=== PATIENT | female | born 1960 | race Caucasian/White ===

== ENCOUNTER → 2017-12-20 | Outpatient (CLI) | payer BC ==
--- NOTE | 2017-12-27 12:14 | MM ---
Reason for exam: screening (asymptomatic). Last mammogram was performed 4 years and 4 months ago. History: Family history of breast cancer in 2 aunts. Took hormonal contraceptives for 4 years. Physical Findings: A clinical breast exam by your physician is recommended on an annual basis and results should be correlated with mammographic findings. MG Screening Mammo w CAD Bilateral CC and MLO view(s) were taken. Prior study comparison: June 30, 2008, bilateral mammo digital work up. June 12, 2008, bilateral digital screening mammogram. The breast tissue is heterogeneously dense. This may lower the sensitivity of mammography. No significant changes when compared with prior studies. ASSESSMENT: Benign, BI-RAD 2 RECOMMENDATION: Routine screening mammogram of both breasts in 1 year.
== END | disposition home or self-care (01) ==
LOC: RADMAMWWP 15:29
PROVIDERS: ATTEND Family Medicine
DX: Z12.31 Encounter for screening mammogram for malignant neoplasm of breast (principal)
CPT/HCPCS: 77067

== ENCOUNTER 2021-04-24 15:26 | Inpatient (IN) | payer BC ==
[2021-04-24] MEDS ORDERED: KETOROLAC 15 MG/ML 1 ML VIAL IM STA (17:58)
--- NOTE | 2021-04-24 18:42 | XR ---
EXAMINATION TYPE: XR Hip RT and AP Pelvis DATE OF EXAM: 04/24/2021 COMPARISON: NONE HISTORY: Fall. Hip pain TECHNIQUE: 3 views FINDINGS: There is an acute impacted subcapital fracture right femur. There is no dislocation. Pelvic ring is intact. Proximal left femur is intact. IMPRESSION: Acute subcapital fracture right femur.
[2021-04-24] MEDS ORDERED: NALOXONE 0.4 MG/ML 1 ML VIAL IV PRN (18:57)
[2021-04-24] MEDS ORDERED: MORPHINE SULFATE 4 MG/ML SYRINGE IV PRN (18:57)
[2021-04-24] MEDS ORDERED: ONDANSETRON 4 MG/2 ML VIAL IVP PRN (18:57)
--- NOTE | 2021-04-24 18:57 | ED ---
Fall HPI - General Chief Complaint: Fall Stated Complaint: right sided pain from fall Time Seen by Provider: 04/24/21 17:46 Source: patient Mode of arrival: ambulatory - History of Present Illness Initial Comments: 60-year-old female presents to emergency Department with a chief complaint fall. States the incident occurred yesterday while she had a trip and fall from a cement step and fell on the right side of her body. She denies any head injuries but reports pain in the right hip. States the pain is exacerbated with flexion, extension, abduction and adduction of the right hip. However, she denies any paresthesias but does report a limited range of motion with the previously mentioned movements. She denies any ecchymosis, erythema or swelling over the right hip. She reports taking [id number] analgesics with no significant improvement in symptoms. - Related Data Allergies Allergy/AdvReac Type Severity Reaction Status Date / Time No Known Allergies Allergy Verified 04/24/21 16:09 Review of Systems ROS Statement: Those systems with pertinent positive or pertinent negative responses have been documented in the HPI. ROS Other: All systems not noted in ROS Statement are negative. Past Medical History Past Medical History: No Reported History History of Any Multi-Drug Resistant Organisms: None Reported Past Surgical History: Hysterectomy Past Psychological History: Anxiety, Depression Smoking Status: Never smoker Past Alcohol Use History: None Reported Past Drug Use History: None Reported General Exam Limitations: no limitations General appearance: alert, in no apparent distress Head exam: Present: atraumatic, normocephalic, normal inspection Eye exam: Present: normal appearance, PERRL, EOMI Pupils: Present: normal accommodation ENT exam: Present: normal exam, normal oropharynx, mucous membranes moist Neck exam: Present: normal inspection, full ROM. Absent: tenderness, lymphadenopathy Respiratory exam: Present: normal lung sounds bilaterally. Absent: respiratory distress Cardiovascular Exam: Present: regular rate, normal rhythm, normal heart sounds. Absent: systolic murmur Extremities exam: Present: normal inspection, full ROM, tenderness (Tenderness over the right hip), normal capillary refill, other (Sensation intact in the right leg. Palpable DP and PT bilaterally). Absent: pedal edema, joint swelling, calf tenderness Back exam: Present: normal inspection, full ROM Neurological exam: Present: alert, oriented X3 Psychiatric exam: Present: normal affect, normal mood Skin exam: Present: warm, dry, intact, normal color Course Vital Signs 04/24/21 16:06 Temperature 98.2 F Pulse Rate 63 Respiratory 18 Rate Blood Pressure 142/72 O2 Sat by Pulse 98 Oximetry Medical Decision Making - Medical Decision Making 60-year-old female presents to emergency department for a fall and right hip pain. Physical examination, she is neurovascularly intact with tenderness over the right hip as well as limited range of motion. Patient requested nonnarcotic analgesia and was given Toradol. X-ray of the pelvis and hip reveals an acute subcapital fracture right femur. I spoke with who recommended CT imaging. Nothing by mouth. Recommended internal medicine consult. Pain control. She will be admitted for further medical management. Case discussed with Dr. Fitzgerald. Disposition Clinical Impression: Fall, Closed right hip fracture Disposition: ADMITTED IP TO THIS HOSP Condition: Good Is patient prescribed a controlled substance at d/c from ED?: No Referrals: Ricky Goetz DO [Primary Care Provider] - 1-2 days Time of Disposition: 18:56
[2021-04-24] MEDS: SODIUM CHLORIDE 0.9% 1,000 ML IV SCH (20:05)
[2021-04-24] MEDS: HYDROmorphone 0.5 MG/0.5 ML SYRINGE IVP PRN (20:05)
--- NOTE | 2021-04-24 23:29 | CT ---
EXAMINATION TYPE: CT hip RT wo con DATE OF EXAM: 04/24/2021 COMPARISON: None HISTORY: right hip pain CT DLP: 555.5 mGycm Automated exposure control for dose reduction was used. Images obtained from the mid ileum to the mid shaft of the femur with no contrast. There is a slightly impacted subcapital fracture of the right femur. There is no dislocation. Acetabu lum is intact. There is no evidence of a pathologic fluid collection. There is mild stranding in the subcutaneous fat over the lateral proximal femur that could be some bruising. There is no evidence of a soft tissue mass. IMPRESSION: Mildly impacted nondisplaced subcapital fracture of the right femur.
[2021-04-25 07:15] LABS: Basophils # (A) 0.1 k/uL (0-0.2); Basophils % (A) 1 %; Eosinophils # (A) 0.8 k/uL (0-0.7); Eosinophils % (A) 9 %; HCT 36.5 % (34.0-46.0); HGB 12.1 gm/dL (11.4-16.0); Lymphocytes # (A) 1.4 k/uL (1.0-4.8); Lymphocytes % (A) 18 %; MCH 32.5 pg (25.0-35.0); MCHC 33.2 g/dL (31.0-37.0); MCV 97.7 fL (80.0-100.0); Mean Platelet Volume 7.2; Monocytes # (A) 0.4 k/uL (0-1.0); Monocytes % (A) 5 %; Neutrophils # (A) 5.3 k/uL (1.3-7.7); Neutrophils % (A) 66 %; Platelet Count 273 k/uL (150-450); RBC 3.73 m/uL (3.80-5.40); RDW 11.8 % (11.5-15.5); WBC 8.1 k/uL (3.8-10.6)
[2021-04-25 07:24] LABS: African American GFR (CKD) >90 (>60 ml/min/1.73 sqM); Anion Gap 4 mmol/L; Blood Urea Nitrogen 14 mg/dL (7-17); Calcium 9.3 mg/dL (8.4-10.2); Carbon Dioxide 31 mmol/L (22-30); Chloride 104 mmol/L (98-107); Glucose 93 mg/dL (74-99); Non-African American GFR(CKD) >90 (>60 ml/min/1.73 sqM); Potassium 4.6 mmol/L (3.5-5.1); Sodium 139 mmol/L (137-145)
--- NOTE | 2021-04-25 07:29 | XR ---
EXAMINATION TYPE: XR chest 1V portable DATE OF EXAM: 04/25/2021 CLINICAL HISTORY: Presurgical study. TECHNIQUE: Single AP portable upright view of the chest is obtained. COMPARISON: None. FINDINGS: Mild chronic parenchymal changes bilaterally without suspicious focal airspace opacity, pl eural effusion, or pneumothorax seen bilaterally. Cardiac silhouette size is within normal limits. Os seous structures are somewhat demineralized. Overlying bra strap noted. IMPRESSION: No acute cardiopulmonary process.
[2021-04-25 07:30] LABS: INR 0.9 (<1.2); Partial Thromboplastin Time 23.2 sec (22.0-30.0)
[2021-04-25] MEDS: HYDROmorphone 0.5 MG/0.5 ML SYRINGE IVP PRN ×2 (10:52→16:37)
[2021-04-25] MEDS: CITALOPRAM HYDROBROMIDE 20 MG TAB PO SCH (10:54)
[2021-04-25] MEDS: ENOXAPARIN 40 MG/0.4 ML SYRINGE SQ SCH (10:54)
--- NOTE | 2021-04-25 11:11 | P.HPOR ---
History of Present Illness H&P Date: 04/25/21 This patient is a 60- year old female who is otherwise healthy that presented to [facility] on 04/24/21 with complaints of right hip pain following a fall. Patient states she was visiting [place] on Sunday and tripped while [place] the light[place] over uneven sidewalk. Patient states she fell directly onto the right hip. She experienced immediate pain in the hip. Patient notes she was able to get up and walk back to the car. She continued to experience pain in the hip after arrival home, therefore she presented to the ER. X-rays and CT scan in the ER revealed a non-displaced femoral neck fracture. She was admitted under the care of Dr. Stevenson with a consult placed to inter [facility] medicine for surgical clearance. Patient is seen and examined bedside in the ER with Dr. Stevenson. She complains of isolated right hip pain. She denies additional injuries or complaints at this time. She denies numbness or tingling of the right lower extremity. She states she does not smoke. She has no prior medical history. Patient denies chest pain, shortness of breath, nausea, vomiting. No complaints or concerns at this time. Vital signs stable. Past Medical History Past Medical History: No Reported History History of Any Multi-Drug Resistant Organisms: None Reported Past Surgical History: Hysterectomy Past Psychological History: Anxiety, Depression Smoking Status: Never smoker Past Alcohol Use History: None Reported Past Drug Use History: None Reported Medications and Allergies Home Medications Medication Instructions Recorded Confirmed Type Acetaminophen [Tylenol] 1,000 mg PO Q4-6H PRN 04/24/21 04/24/21 History Citalopram Hydrobromide [CeleXA] 40 mg PO DAILY 04/24/21 04/24/21 History Naproxen Sodium [Aleve] 440 mg PO ONCE PRN 04/24/21 04/24/21 History Allergies Allergy/AdvReac Type Severity Reaction Status Date / Time No Known Allergies Allergy Verified 04/24/21 20:12 Physical Examination On examination, patient is sitting in bed in no apparent distress. She is alert and orientated x3. Her head appears normocephalic and atraumatic. Her breathing appears non-labored. On inspection of her bilateral upper extremities, no obvious deformities or signs of trauma. On inspection of her left lower extremity, no obvious deformities or signs of trauma. On inspection of right hip, there is a small area of ecchymosis of the posterior hip. No open wounds or lacerations. ROM is not tested at this time. No pain on palpation of the knee, lower leg, ankle, foot. Motor and sensory function intact right lower extremity. Calf is soft and nontender. Dorsalis pedis pulse +2. Right lower extremity is warm and well perfused. Results - Labs Labs: Abnormal Lab Results - Last 24 Hours (Table) 04/25/21 04/25/21 Range/Units 06:49 06:49 RBC 3.73 L (3.80-5.40) m/uL Eosinophils # 0.8 H (0-0.7) k/uL Carbon Dioxide 31 H (22-30) mmol/L H & H 04/25/21 Range/Units 06:49 Hgb 12.1 (11.4-16.0) gm/dL Hct 36.5 (34.0-46.0) % Coagulation 04/25/21 Range/Units 06:49 INR 0.9 (<1.2) Result Diagrams: 04/25/21 06:49 04/25/21 06:49 Assessment and Plan Assessment: CT scan right hip 04/25/21: Right non-displaced impacted subcapital femoral neck fracture. Plan: - Clinical and imaging findings were discussed with the patient and Dr. Stevenson. Operative treatments were discussed, and in situ screw fixation is recommended for the right impacted subcapital femoral neck fracture. Surgical risks were discussed, patient provides verbal consent for surgery. - We will plan for surgery this afternoon, pending medical clearance. - Non-weight bearing right lower extremity. Pain management as needed. - NPO diet. - Internal medicine has been consulted for pre-operative medical evaluation.
--- NOTE | 2021-04-25 11:34 | P.PN ---
Progress Note - Text Progress Note Date: 04/25/21 I agree with the H&P by Ulisses Castañeda PA-C. I also examined the patient and reviewed her imaging. I had a long conversation with Liseth and her family who were at bedside. She fell on Sunday and was able to walk and put weight on her hip after her fall. She came in to the ED yesterday due to increased pain and difficulty walking and was found to have a minimally displaced, valgus impacted femoral neck fracture. She was admitted under my care and internal medicine was consulted for clearance and alessandra- operative medical management. We discussed treatment of her femoral neck fracture with either in situ screw fixation versus a total hip replacement. We discussed the pros and cons of both. Since she walked on her hip prior to having x-rays, since her x-rays and CT scan show minimal displacement and she has a Posterior-Tilt angle < 20-degrees I think she is a candidate for in situ screw fixation. I discussed the procedure and recovery at length. We discussed the possibility of collapse/failure, non- union etc. and requiring conversion to a total hip replacement down the road if this were to happen. I also gave her the option of having a direct anterior hip replacement now rather than attempting screw fixation. After our discussion, the patient would like to proceed with screw fixation, understanding the limitations and possibility of needing a hip replacement down the road. She states that she would like the least amount of surgery at this time. Since her fracture is impacted, she has a posterior-tilt angle < 20-degrees and she walked on it after she fell I think that she is a good candidate for in-situ screw fixation. All of her questions were answered. She will remain strict bed-rest and NWB on her right leg until surgery this afternoon.
--- NOTE | 2021-04-25 13:19 | P.CONS ---
History of Present Illness - Reason for Consult Consult date: 04/25/21 Medical management Requesting physician: Jagjit Stevenson - Chief Complaint Right hip pain - History of Present Illness Consultation: This is a pleasant 60-year-old patient who follows with Dr. Goetz. Chronic stable medical conditions include anxiety depression. She also has a chronic muscle pains for which she's had physical therapy massage etc. Hurts in several joints. She does get reflux symptoms occasionally. Has trouble sleeping. Also has urinary incontinence. 2 days ago she missed a step and fell on the right hip. She is then she has been walking on the leg. Progressive pain. Decided to come in today. Computed tomography scan of the right hip showed mildly impacted nondisplaced Fracture of the right femur. She is due to going for surgery this afternoon. Had a baseline patient otherwise very active. Has any cardiac symptoms. No chest pam n or shortness bed. No cardiac history. Has a good exercise tolerance. Review of systems: GEN.: None EYES: None HEENT: None NECK: None RESPIRATORY: None CARDIOVASCULAR: None GASTROINTESTINAL: Occasional reflux GENITOURINARY: Urinary incontinence MUSCULOSKELETAL: Right hip pain and pain in different muscles LYMPHATICS: None HEMATOLOGICAL: None PSYCHIATRY: None NEUROLOGICAL: None Past medical history to include: Anxiety depression Social history: Son lives with her. She works at [employer]. Does not smoke or drink alcohol. Physical examination: VITAL SIGNS: 98.1, 75, 16, 120/60, 99% room air GENERAL: BMI 21.9, laying in bed, slightly uncomfortable. EYES: Pupils equal. Conjunctiva normal. HEENT: External appearance of nose and ears normal, oral cavity grossly normal. NECK: JVD not raised; masses not palpable. HEART: First and second heart sounds are normal; no edema. LUNGS: Respiratory rate normal; clear to auscultation. ABDOMEN: Soft, nontender, liver spleen not palpable, no masses palpable. PSYCH: [Alert and oriented x3; mood and affect slightly anxiety l. MUSCULAR skeletal: Some tenderness over the right hip. Slight bruising. NEUROLOGICAL: Cranial nerves grossly intact; no facial asymmetry, power and sensation grossly intact. LYMPHATICS: No lymph nodes palpable in the axilla and neck INVESTIGATIONS, reviewed in the clinical context: WBC 8.1 hemoglobin 12.1 platelets 273 potassium 4.6 creatinine 0.69 Coronavirus [PCR]: Not detected EKG tracing personally reviewed by me-normal sinus rhythm nonspecific ST segment change Chest x-ray film personally reviewed by me-lung medley clear Computed tomography scan of the right hip: Nondisplaced fracture femur Assessment and plan: -Acute right femur fracture secondary to fall nondisplaced. Patient is pending surgery this afternoon. -Anxiety depression not otherwise specified Celexa 40 mg daily -Intermittent GERD Use liquid Tums as needed -Chronic insomnia, idiopathic Melatonin 3 mg daily at bedtime -Chronic urinary stress incontinence Follow clinically Perioperative cardiovascular risk assessment: Patient is a low risk from a cardiac vascular standpoint. Has a good exercise tolerance. Is no cardiac history. No chronic symptoms. No further intervention. Patient stable to proceed for surgery medically. Discussed with the patient. Resume Celexa. Lovenox for DVT prophylaxis. Care was discussed with the patient. Questions answered. Thank you Dr. Stevenson Past Medical History Past Medical History: No Reported History History of Any Multi-Drug Resistant Organisms: None Reported Past Surgical History: Hysterectomy Past Psychological History: Anxiety, Depression Smoking Status: Never smoker Past Alcohol Use History: None Reported Past Drug Use History: None Reported Medications and Allergies Home Medications Medication Instructions Recorded Confirmed Type Acetaminophen [Tylenol] 1,000 mg PO Q4-6H PRN 04/24/21 04/24/21 History Citalopram Hydrobromide [CeleXA] 40 mg PO DAILY 04/24/21 04/24/21 History Naproxen Sodium [Aleve] 440 mg PO ONCE PRN 04/24/21 04/24/21 History Allergies Allergy/AdvReac Type Severity Reaction Status Date / Time No Known Allergies Allergy Verified 04/24/21 20:12 Physical Exam Vitals: Vital Signs Temp Pulse Resp BP Pulse Ox 04/25/21 06:45 70 16 120/60 99 04/25/21 03:00 98.1 F 75 18 123/85 97 04/25/21 00:00 71 20 123/64 99 04/24/21 19:29 60 20 113/75 97 04/24/21 16:06 98.2 F 63 18 142/72 98 Intake and Output 04/24/21 04/25/21 04/25/21 22:59 06:59 14:59 Other: Weight 63.503 kg Results CBC & Chem 7: 04/25/21 06:49 04/25/21 06:49 Labs: Abnormal Lab Results - Last 24 Hours (Table) 04/25/21 04/25/21 Range/Units 06:49 06:49 RBC 3.73 L (3.80-5.40) m/uL Eosinophils # 0.8 H (0-0.7) k/uL Carbon Dioxide 31 H (22-30) mmol/L
[2021-04-25] MEDS ORDERED: IV FLUID CONTINUATION 1,000 ML IV ONE (16:44)
[2021-04-25] MEDS ORDERED: MIDAZOLAM 2 MG/2 ML VIAL ONE (17:53)
[2021-04-25] MEDS ORDERED: PROPOFOL 10 MG/ML 20 ML VIAL IV ONE (17:53)
[2021-04-25] MEDS ORDERED: fentaNYL (PF) 50 MCG/ML 2 ML AMP ONE (17:53)
[2021-04-25] MEDS ORDERED: LIDOCAINE 1% INJ 10MG/ML (20 ML MDV) ONE (17:53)
[2021-04-25] MEDS ORDERED: ePHEDrine SULFATE/0.9% NACL/PF 50 MG/5 ML SYRINGE IV ONE (17:53)
[2021-04-25] MEDS ORDERED: ceFAZolin 1,000 MG in SODIUM CHLORIDE 0.9% 1,000 ML IRRIGATION ONE (18:12)
[2021-04-25] MEDS ORDERED: LACTATED RINGERS 1,000 ML IV ONE (19:06)
[2021-04-25] MEDS ORDERED: BUPIVACAINE (PF) 0.5% 30 ML VIAL SQ ONE (19:13)
[2021-04-25] MEDS ORDERED: HYDROcodone/APAP 5-325MG 1 EACH TAB PO PRN (19:16)
[2021-04-25] MEDS ORDERED: NALOXONE 0.4 MG/ML 1 ML VIAL IV PRN (19:16)
[2021-04-25] MEDS ORDERED: diazePAM 5 MG TAB PO PRN (19:16)
[2021-04-25] MEDS ORDERED: HYDROmorphone 1 MG/ML 1 ML SYRINGE IVP PRN (19:16)
[2021-04-25] MEDS ORDERED: MAGNESIUM HYDROXIDE 2,400 MG/10 ML CUP PO PRN (19:16)
[2021-04-25] MEDS ORDERED: hydrOXYzine pamoate 25 MG CAP PO PRN (19:16)
--- NOTE | 2021-04-25 19:16 | P.OP ---
Date of Procedure: 04/25/21 Preoperative Diagnosis: Right valgus impacted, Garden 1 femoral neck fracture Postoperative Diagnosis: Same Procedure(s) Performed: In situ screw fixation of right femoral neck fracture Anesthesia: spinal Surgeon: Jagjit Stevenson Flask Carrier #1: Ulisses Castañeda IV fluids (ml): 25 Pathology: none sent Condition: stable Disposition: PACU Indications for Procedure: The patient is a very pleasant there is a healthy 60-year-old female who sustained a ground-level fall on Sunday. After her fall she was able to get up and walk. On Sunday she developed increasing pain and difficulty walking so she presented to the emergency department. In the ER x-rays showed a nondisplaced valgus impacted femoral neck fracture. The patient was admitted under my care. A computed tomography scan was obtained which showed minimal displacement. I measured the posterior tilt angle on the lateral x-ray to be around 5. I had a long discussion with the patient preoperatively on treatment. We discussed both in situ screw fixation versus a total hip replacement. We discussed the pros and cons of both. Given that she walked on her fracture and it was nondisplaced with a posterior tilt angle of less than 5 I think it is reasonable to proceed with in situ screw fixation. The patient requested this. She understands potential for displacement and later conversion to total hip replacement. We discussed the potential risks and complications of in situ screw fixation including but certainly not limited to risk of infection, damage to local blood vessels or nerves, nonunion, malunion, collapse, posttraumatic arthritis, avascular necrosis, continued or worsened pain, some dramatic hardware, need for further surgery including conversion to total hip arthroplasty, DVT, PE, failure to thrive, inability to regain preinjury level of function and possibly loss of life or limb. The patient voiced understanding of this particularly the potential for conversion to total hip arthroplasty. She provided her verbal and written consent to go forward with surgery. Description of Procedure: The patient was identified in prep holding and the correct right leg was marked with my initials. I reviewed the procedure with the patient all of her questions were answered. The patient was brought back to the operating room. She was given a spinal anesthetic on the gurney. The boots for the hand table were applied on the gurney. The patient was then transferred onto the operating room table. Peroneal post was placed. Her arms were placed in the safe position. None sterile draping was applied. The left leg was scissored and abductor to facilitate imaging. A timeout was performed identifying the correct patient, operative extremity, and procedure. Lastly was brought in to verify that orthogonal imaging including a true AP and lateral the hip could be obtained. The fracture appeared nondisplaced on these repeat imaging with fluoroscopy. The patient's right leg was then prepped and draped in the standard sterile fashion. A second timeout was performed identifying the correct patient, operative 70, procedure. I verified that antibiotics and takes been given. I began by making a 3 cm incision over the lateral aspect the proximal femur. Dissection was carried down to the subcu in his fat with lateral cautery. The fascia was split in line with the skin incision. I bluntly sected through the fibers of vastus lateralis and toes on the lateral cortex the femur. An inferior guide pin starting just proximal to lesser trochanter was placed in the low center position of the femoral head. I then used the guide to place 2 superior n spread out along the anterior and posterior cortex of the neck. Fluoroscopy was brought in to verify position of all 3 guidepins. All 3 pins were measured and then drilled stopping 10 mm short of the final depth. The inferior screw was placed first followed by the 2 superior screws. The guide pins were backed off slightly to allow visualization of the distal aspect of the screw in relation to the joint. All 3 screws appeared to have their threads across the fracture not intra-articular. All 3 screws had excellent bite. The guidepins were removed and final fluoroscopic images were taken. The wound was thoroughly irrigated and closed in layers. A sterile dressing was applied after local anesthetic was infiltrated around the incision. The patient was then ta rachel off and a table transferred to a rriverside and brought to recovery having tolerated the procedure well. Ulisses Castañeda [facility] was required as a skilled carpenter assistant installer for patient positioning, exposure, placement of hardware, closure of wound, and application of dressing. Plan: The patient is to be toe-touch weightbearing for 6 weeks. She received 2 doses of postoperative antibiotics. We'll treat her with aspirin for DVT prophylaxis. Anticipate discharge home tomorrow. We will check a vitamin D for bone health
--- NOTE | 2021-04-25 19:27 | XR ---
EXAMINATION TYPE: XR Hip Limited RT DATE OF EXAM: 04/25/2021 COMPARISON: NONE HISTORY: Hip surgery TECHNIQUE: 4 views FINDINGS: 4 fluoroscopic images were obtained at show placement of 3 screws fixing the right femoral neck. There was 1 minute and 13 seconds of fluoroscopy time recorded for the surgery. IMPRESSION: Satisfactory internal fixation of the subcapital fracture of the femoral neck.
[2021-04-25] MEDS ORDERED: HYDROmorphone 0.5 MG/0.5 ML SYRINGE IVP ONE (19:50)
[2021-04-25 19:59] VITALS: RESP 16
--- NOTE | 2021-04-25 21:18 | FL ---
EXAMINATION TYPE: FL guidance operating room DATE OF EXAM: 04/25/2021 FLUOROSCOPY Fluoroscopy time of 1 minute 13 seconds seconds was used during right hip fracture fixation. 3 image /s document/s the procedure.
[2021-04-25] MEDS: ASPIRIN 81 MG PO SCH (21:20)
[2021-04-25] MEDS: HYDROcodone/APAP 5-325MG 1 EACH TAB PO PRN (21:24)
[2021-04-25] MEDS: SODIUM CHLORIDE 0.9% 1,000 ML IV SCH ×2 (21:33→22:11)
[2021-04-25] MEDS ORDERED: TEMAZEPAM 15 MG CAP PO PRN (22:00)
[2021-04-26] MEDS: HYDROmorphone 0.5 MG/0.5 ML SYRINGE IVP PRN (00:08)
[2021-04-26] MEDS: ENOXAPARIN 40 MG/0.4 ML SYRINGE SQ SCH (07:10)
[2021-04-26] MEDS: CITALOPRAM HYDROBROMIDE 20 MG TAB PO SCH (07:11)
[2021-04-26] MEDS: ASPIRIN 81 MG PO SCH (07:11)
[2021-04-26] MEDS: SODIUM CHLORIDE 0.9% 1,000 ML IV SCH (07:12)
[2021-04-26 07:28] VITALS: BP 109/65; PULSE 70; TEMP 98.4
--- NOTE | 2021-04-26 09:34 | P.DS ---
Providers Date of admission: 04/24/21 19:00 Expected date of discharge: 04/26/21 Attending physician: Jagjit Stevenson Consults: 04/25/21 08:41 Consult Physician Routine Consulting Provider: Salazar Anderson Consult Reason/Comments: Medical management Do you want consulting provider notified?: Yes Primary care physician: [facility] Course: This is a 60-year-old female who presented to [facility] ED on 04/24/21 after falling and sustaining injury to the right hip. On exam and x-ray in the emergency department she was found to have a right femoral neck fracture. The patient was admitted under the care of Dr. Stevenson for surgical intervention and care, with a consultation placed to internal medicine for perioperative medical management. The patient is taken to surgery for in situ screw fixation of right femoral neck fracture on 04/25/[address] Stevenson. The procedure is performed without complication or sequelae. The patient is doing well postoperatively. Vital signs are stable on postop day #1. Patient is seen and examined bedside this morning. She states she is experiencing discomfort in the right hip, although it is well-controlled on oral pain medication. She tolerated her breakfast well. She is urinating without issue. The patient has been up to the bathroom. She is remaining toe-touch weight bearing on the operative extremity with a walker. She denies chest pain, shortness breath, nausea, vomiting, fevers, chills, numbness or tingling of the operative extremity. There are no complaints or concerns this morning . On examination, the patient is lying in bed in no apparent distress. She is alert and oriented 3. On inspection of her right hip, there is a clean, dry, intact surgical dressing in place no bleeding or drainage through the dressing. There is mild swelling of the thigh. The thigh is soft and compressible. Patient has good strength and range of motion of her right ankle. Motor and sensory function is intact of the right lower extremity. The calves are soft and nontender to palpation bilaterally. No evidence of DVT. Dorsalis pedis pulse +2 of the right lower extremity. Right lower extremity is warm and well-perfused with brisk capillary refill distally. The patient is discharged home today pending medical clearance today. Please refer to the med rec for accurate list of medications. Patient Condition at Discharge: Good Plan - Discharge Summary New Discharge Prescriptions: New HYDROcodone/APAP 5-325MG [[place] 5-325] 1 - 2 tab PO Q6HR PRN 7 Days #40 tab PRN Reason: Pain Aspirin 81 mg PO BID 30 Days #60 tab Docusate [Colace] 100 mg PO BID 30 Days #60 cap No Action Acetaminophen [Tylenol] 1,000 mg PO Q4-6H PRN PRN Reason: Pain Citalopram Hydrobromide [CeleXA] 40 mg PO DAILY Naproxen Sodium [Aleve] 440 mg PO ONCE PRN PRN Reason: Pain Discharge Medication List Acetaminophen [Tylenol] 1,000 mg PO Q4-6H PRN 04/24/21 [History] Citalopram Hydrobromide [CeleXA] 40 mg PO DAILY 04/24/21 [History] Naproxen Sodium [Aleve] 440 mg PO ONCE PRN 04/24/21 [History] Aspirin 81 mg PO BID 30 Days #60 tab 04/26/21 [Rx] Docusate [Colace] 100 mg PO BID 30 Days #60 cap 04/26/21 [Rx] HYDROcodone/APAP 5-325MG [[place] 5-325] 1 - 2 tab PO Q6HR PRN 7 Days #40 tab 04/26/21 [Rx] Follow up Appointment(s)/Referral(s): Ricky Goetz DO [Primary Care Provider] - 1-2 days Jagjit Stevenson MD [Medical Doctor] - 2 Weeks Activity/Diet/Wound Care/Special Instructions: Toe-touch weight bearing on operative extremity with a walker. Take pain medications as prescribed. Take aspirin as prescribed for blood clot prevention. Leave operative dressing in place for 48 hours. Then change and apply clean 4x4s. Follow-up in the office in [address] Stevenson. Call the office with any questions or concerns, Discharge Disposition: HOME SELF-CARE
[2021-04-26] MEDS ORDERED: MULTIVITAMINS, THERA 1 EACH TAB PO SCH (12:00)
[2021-04-26] MEDS: HYDROcodone/APAP 5-325MG 1 EACH TAB PO PRN (14:33)
--- NOTE | 2021-04-26 21:48 | P.PN ---
Progress Note - Text Progress Note Date: 04/26/21 - Chief Complaint Right hip pain Consultation: This is a pleasant 60-year-old patient who follows with Dr. Goetz. Chronic stable medical conditions include anxiety depression. She also has a chronic muscle pains for which she's had physical therapy massage etc. Hurts in several joints. She does get reflux symptoms occasionally. Has trouble sleeping. Also has urinary incontinence. 2 days ago she missed a step and fell on the right hip. She is then she has be en walking on the leg. Progressive pain. Decided to come in today. Computed tomography scan of the right hip showed mildly impacted nondisplaced Fracture of the right femur. She is due to going for surgery this afternoon. Had a baseline patient otherwise very active. Has any cardiac symptoms. No chest pain or shortness bed. No cardiac history. Has a good exercise tolerance. April 18: Patient underwent in situ screw fixation of the right femoral neck fracture. Pain control. No chest pain or short of breath. Fair oral intake. Care was discussed with the patient. Questions answered. Review of systems: Was done for constitutional, cardiovascular, GI, pulmonary. relevant finding as above Current medications reviewed in today's electronic records Past medical history to include: Anxiety depression Social history: Son lives with her. She works at [email or web address]. Does not smoke or drink alcohol. Physical examination: VITAL SIGNS: 98.4, 70, 16, 109/65, 97% room air GENERAL: Reclining in bed, comfortable EYES: Pupils equal. Conjunctiva normal. NECK: JVD not raised; masses not palpable. HEART: First and second heart sounds are normal; no edema. LUNGS: Respiratory rate normal; clear to auscultation. ABDOMEN: Soft, nontender, liver spleen not palpable, no masses palpable. PSYCH: [Alert and oriented x3; mood and affect slightly anxiety l. MUSCULAR skeletal: Some tenderness over the right hip. INVESTIGATIONS, reviewed in the clinical context: WBC 8.1 hemoglobin 12.1 platelets 273 potassium 4.6 creatinine 0.69 Coronavirus [PCR]: Not detected EKG tracing personally reviewed by me-normal sinus rhythm nonspecific ST segment change Chest x-ray film personally reviewed by me-lung medley clear Computed tomography scan of the right hip: Nondisplaced fracture femur Assessment and plan: -Acute right femur fracture secondary to fall nondisplaced. April 25: In situ screw fixation of the right femoral neck fracture, by Dr. Stevenson -Anxiety depression not otherwise specified Celexa 40 mg daily -Intermittent GERD Use liquid Tums as needed -Chronic insomnia, idiopathic Melatonin 3 mg daily at bedtime -Chronic urinary stress incontinence Follow clinically Care was discussed with the patient. Follow-up with Dr. Goetz upon discharge. Thank you Dr. Stevenson
== END 2021-04-26 15:21 | disposition home or self-care (01) | DRG 482 ==
LOC: EC 15:26 → 4SSUR 19:00
PROVIDERS: ADMIT Orthopaedic Surgery; ATTEND Orthopaedic Surgery
PROC: 0QH604Z Insertion of Internal Fixation Device into Right Upper Femur, Open Approach (ICD-10-PCS; principal; 2021-04-25 07:30)
DX: S72.011A Unspecified intracapsular fracture of right femur, initial encounter for closed fracture (principal); F41.8 Other specified anxiety disorders; F51.04 Psychophysiologic insomnia; K21.9 Gastro-esophageal reflux disease without esophagitis; N39.3 Stress incontinence (female) (male); Z20.822 Contact with and (suspected) exposure to COVID-19; W10.9XXA Fall (on) (from) unspecified stairs and steps, initial encounter; Z90.710 Acquired absence of both cervix and uterus; Z79.899 Other long term (current) drug therapy
CPT/HCPCS: 71045; 73501; 73502; 80048; 82306; 85025; 85610; 85730; 87635; 93005; 96361; 96372; 96374; 96375; 99285

== ENCOUNTER → 2023-03-20 | Outpatient (CLI) | payer OTHER ==
--- NOTE | 2023-03-21 13:36 | MM ---
Reason for Exam: Screening (asymptomatic). Last mammogram was performed 5 year(s) and 3 month(s) ago. Patient History: Menarche at age 13. First Full-Term at age 17. Hysterectomy at age 26. Patient used Hormonal Contraceptives for 4 years. Maternal aunt had breast cancer. Maternal aunt had breast cancer. Risk Values: Radha 5 year model risk: 1.1%. NCI Lifetime model risk: 4.3%. Prior Study Comparison: 06/30/2008 Bilateral Diagnostic Mammogram, [facility]. 08/12/2013 Screening Mammogram, [facility]. 12/20/2017 Bilateral Screening Mammogram, [facility]. Tissue Density: The breast tissue is extremely dense which could obscure a lesion on mammography. Findings: Analyzed By CAD. There is no suspicious group of microcalcifications or new suspicious mass in either breast. Overall Assessment: Benign, BI-RAD 2 Management: Screening Mammogram of both breasts in 1 year. . Patient should continue monthly self-breast exams. A clinical breast exam by your physician is recommended on an annual basis. This exam should not preclude additional follow-up of suspicious palpable abnormalities. Note on Radha scores and lifetime risk: 1. A Radha score greater than 3% is considered moderate risk. If this is the case, consider specialist referral to assess eligibility for a risk reducing agent. 2. If overall lifetime risk for the development of breast cancer is 20% or higher, the patient may qualify for future screening with alternating mammogram and breast MRI. Electronically signed and approved by: Carlos Alberto Huerta M.D. [facility]
== END | disposition home or self-care (01) ==
LOC: RADMAMWWP 12:51
PROVIDERS: ATTEND Family Medicine
DX: Z12.31 Encounter for screening mammogram for malignant neoplasm of breast (principal); Z80.3 Family history of malignant neoplasm of breast
CPT/HCPCS: 77063; 77067

== ENCOUNTER → 2024-01-30 | Outpatient (CLI) | payer OTHER, MEDICARE ==
[2024-01-30 21:32] LABS: Chol/HDL Ratio 4.08 Ratio; LDL Cholesterol,Calculated 174.5 mg/dL (0.0-131.0); VLDL Calculation 19.48 mg/dL (5.00-40.00)
== END | disposition home or self-care (01) ==
LOC: LABWHC1 11:33
PROVIDERS: ATTEND Physician Assistant
DX: E78.5 Hyperlipidemia, unspecified (principal)
CPT/HCPCS: 36415; 80061